=== PATIENT | female | born 1985 | race Caucasian/White ===

== ENCOUNTER 2018-03-21 11:20 | Emergency (ER) | payer SELFPAY ==
[~2018-03-21] VITALS: Ht 162.6 cm; Wt 97.5 kg
[2018-03-21 11:35] VITALS: BP 150/69
[2018-03-21] MEDS ORDERED: AMOX875T PO (11:57)
--- NOTE | 2018-03-21 11:58 | PHYS DOC ---
Adult General Chief Complaint Chief Complaint: EARACHE/EAR PAIN HPI HPI Patient is a 32 year old female who presents with mild bilateral ear pain that has been going on for 3 days. Patient denies any fever coughing or congestion. Patient states the pain is worse on the left side. She describes the pain as sharp and intermittent. Review of Systems Review of Systems Constitutional: Denies fever or chills [] Eyes: Denies change in visual acuity, redness, or eye pain [] HENT: Reports bilateral ear pain. Denies nasal congestion or sore throat [] Respiratory: Denies cough or shortness of breath [] Cardiovascular: No additional information not addressed in HPI [] GI: Denies abdominal pain, nausea, vomiting, bloody stools or diarrhea [] : Denies dysuria or hematuria [] Musculoskeletal: Denies back pain or joint pain [] Integument: Denies rash or skin lesions [] Neurologic: Denies headache, focal weakness or sensory changes [] All other systems were reviewed and found to be within normal limits, except as documented in this note. Allergies Allergies Allergies Coded Allergies Type Severity Reaction Last Updated Verified No Known Drug Allergies 03/21/18 No Physical Exam Physical Exam Constitutional: Well developed, well nourished, no acute distress, non-toxic appearance. [] HENT: Normocephalic, atraumatic, bilateral external ears normal, oropharynx moist, no oral exudates, nose normal. [] Right TM is mildly injected, left TM is moderately injected with small amount of cloudy fluid. No bulging. Eyes: PERRLA, EOMI, conjunctiva normal, no discharge. [] Neck: Normal range of motion, no tenderness, supple, no stridor. [] Cardiovascular:Heart rate regular rhythm, no murmur [] Lungs & Thorax: Bilateral breath sounds clear to auscultation [] Abdomen: Bowel sounds normal, soft, no tenderness, no masses, no pulsatile masses. [] Skin: Warm, dry, no erythema, no rash. [] Back: No tenderness, no CVA tenderness. [] Extremities: No tenderness, no cyanosis, no clubbing, ROM intact, no edema. [] Neurologic: Alert and oriented X 3, normal motor function, normal sensory function, no focal deficits noted. [] Psychologic: Affect normal, judgement normal, mood normal. [] EKG EKG [] Radiology/Procedures Radiology/Procedures [] Course & Med Decision Making Course & Med Decision Making Pertinent Labs and Imaging studies reviewed. (See chart for details) Patient has bilateral otitis media. Discharged with amoxicillin. Tylenol/Motrin for pain or fever. Follow-up with primary care doctor in 1-2 weeks. Dragon Disclaimer Dragon Disclaimer This electronic medical record was generated, in whole or in part, using a voice recognition dictation system. Departure Departure Impression: Primary Impression: Otitis media Disposition: 01 HOME, SELF-CARE Condition: STABLE Referrals: DEONTE DEJESUS MD follow up in 1-2 weeks Patient Instructions: Otitis Media, Adult Additional Instructions: You have ear infection. Ensure you complete your antibiotics. Take Tylenol/ Motrin for pain or fever. Follow-up with your doctor in 1-2 weeks as needed. Come back to the ED at any point symptoms worsen. Scripts Amoxicillin (AMOXICILLIN) 875 Mg Tablet 1 TAB PO BID, #20 TAB Prov: BART ACUÑA APRN 03/21/18 Problem Qualifiers Primary Impression: Otitis media Otitis media type: other nonsuppurative Chronicity: acute Laterality: bilateral Recurrence: not specified as recurrent Qualified Codes: H65.193 - Other acute nonsuppurative otitis media, bilateral BART ACUÑA MANAGER COMPLIANCE Mar 21, 2018 11:58
== END 2018-03-21 12:02 | disposition home or self-care (01) ==
LOC: ER 11:20
DX: H65.193 Other acute nonsuppurative otitis media, bilateral (principal)
CPT/HCPCS: 99283

== ENCOUNTER 2019-02-08 10:15 | Emergency (ER) | payer BC ==
[~2019-02-08] VITALS: Ht 162.6 cm; Wt 86.2 kg
[~2019-02-08 10:15] MED LIST: AMOX875T PO
[2019-02-08] MEDS ORDERED: IV NORMAL SALINE 1000ML BAG 1,000 ML IV SCH (10:33)
--- NOTE | 2019-02-08 10:39 | PHYS DOC ---
Past Medical History Past Medical History: Kidney Stone Additional Past Medical Histor: EXCEMA, PREG. INDUCED HYPERTENSION Past Surgical History: Smoking: Cigarettes Alcohol Use: Occasionally Drug Use: None Adult General Chief Complaint Chief Complaint: ABDOMINAL PAIN HPI HPI Patient is a 33-year-old female who presents to the emergency department for evaluation. The patient states that about 2 weeks ago she awakened with left flank pain, and since that time has had persistent dysuria, urinary frequency and hesitancy. She states that she has had kidney stones in the pat, numerous of which have passed on their own, and this feels somewhat similar. She has had some intermittent nausea and vomiting but has not had any fevers or chills. She denies any vaginal bleeding or discharge. There are no alleviating or exacerbating factors to her symptoms otherwise. Review of Systems Review of Systems Constitutional: Denies fever or chills [] Eyes: Denies change in visual acuity, redness, or eye pain [] HENT: Denies nasal congestion or sore throat [] Respiratory: Denies cough or shortness of breath [] Cardiovascular: The patient denies any shortness of breath, chest pain, palpitations, or orthopnea [] GI: Denies bloody emesis, bloody stools or diarrhea [] : Denies vaginal bleeding, discharge or hematuria [] Musculoskeletal: Denies back pain or joint pain [] Integument: Denies rash or skin lesions [] Neurologic: Denies headache, focal weakness or sensory changes [] Endocrine: Denies polyuria or polydipsia [] All other systems were reviewed and found to be within normal limits, except as documented in this note. Current Medications Current Medications Current Medications Medications (Trade) Dose Ordered Sig/Ly Start Time Stop Time Status Last Admin Dose Admin Ceftriaxone Sodium (Rocephin) 1 gm 1X ONCE 02/08/19 12:00 02/08/19 12:01 DC 02/08/19 12:02 1 GM Ketorolac Tromethamine (Toradol 30mg Vial) 30 mg 1X ONCE 02/08/19 10:45 02/08/19 10:46 DC 02/08/19 12:02 30 MG Ondansetron HCl (Zofran) 4 mg 1X ONCE 02/08/19 10:45 02/08/19 10:46 DC 02/08/19 12:02 4 MG Sodium Chloride 1,000 ml @ 1,000 mls/hr Q1H 02/08/19 10:33 02/08/19 11:32 DC 02/08/19 12:02 1,000 MLS/HR Allergies Allergies Allergies Coded Allergies Type Severity Reaction Last Updated Verified No Known Drug Allergies 03/21/18 No Physical Exam Physical Exam PHYSICAL EXAM: CONSTITUTIONAL: Well developed, well nourished HEAD: normocephalic, atraumatic EENT: PERRL, EOMI. Conjunctivae normal color, sclerae non-icteric; moist mucous membranes. NECK: Supple, non-tender; no meningismus. LUNGS: Lungs CTA, breathing even and unlabored. Normal air movement. HEART: Regular rate and rhythm, no murmur CHEST: No deformity; non-tender ABDOMEN: The abdomen is soft, there is diffuse tenderness to palpation to the abdomen, most prominently in the left abdomen, without rebound or guarding. The remainder the abdomen is soft and non-tender, no masses or bruits. EXTREM: Normal ROM; no deformity, no calf tenderness. Normal pulses palpable in all extremities. There is no pedal edema. SKIN: No rash; no diaphoresis NEURO: Alert; normal speech and cognition; CN's grossly intact; strength grossly intact without focal deficit. BACK: No CVA TTP. Current Patient Data Vital Signs Vital Signs Date Time Temp Pulse Resp B/P (MAP) Pulse Ox O2 Delivery O2 Flow Rate FiO2 02/08/19 10:45 98.4 80 14 129/75 (93) 98 Room Air 98.4 Lab Values Laboratory Tests Test 02/08/19 10:40 02/08/19 10:41 White Blood Count 7.4 x10^3/uL (4.0-11.0) Red Blood Count 4.61 x10^6/uL (3.50-5.40) Hemoglobin 13.8 g/dL (12.0-15.5) Hematocrit 40.4 % (36.0-47.0) Mean Corpuscular Volume 88 fL (79-100) Mean Corpuscular Hemoglobin 30 pg (25-35) Mean Corpuscular Hemoglobin Concent 34 g/dL (31-37) Red Cell Distribution Width 14.1 % (11.5-14.5) Platelet Count 236 x10^3/uL (140-400) Neutrophils (%) (Auto) 60 % (31-73) Lymphocytes (%) (Auto) 30 % (24-48) Monocytes (%) (Auto) 7 % (0-9) Eosinophils (%) (Auto) 3 % (0-3) Basophils (%) (Auto) 1 % (0-3) Neutrophils # (Auto) 4.5 x10^3/uL (1.8-7.7) Lymphocytes # (Auto) 2.2 x10^3/uL (1.0-4.8) Monocytes # (Auto) 0.5 x10^3/uL (0.0-1.1) Eosinophils # (Auto) 0.2 x10^3/uL (0.0-0.7) Basophils # (Auto) 0.1 x10^3/uL (0.0-0.2) Urine Collection Type Unknown Urine Color Yellow Urine Clarity Clear Urine pH 7.0 Urine Specific [place] 1.020 Urine Protein Negative mg/dL (NEG-TRACE) Urine Glucose (UA) Negative mg/dL (NEG) Urine Ketones (Stick) Negative mg/dL (NEG) Urine Blood Small (NEG) Urine Nitrite Positive (NEG) Urine Bilirubin Negative (NEG) Urine Urobilinogen Dipstick 1.0 mg/dL (0.2 mg/dL) Urine Leukocyte Esterase Moderate (NEG) Urine RBC Occ /HPF (0-2) Urine WBC 11-20 /HPF (0-4) Urine Bacteria Many /HPF (0-FEW) Sodium Level 141 mmol/L (136-145) Potassium Level 4.0 mmol/L (3.5-5.1) Chloride Level 105 mmol/L (98-107) Carbon Dioxide Level 25 mmol/L (21-32) Anion Gap 11 (6-14) Blood Urea Nitrogen 16 mg/dL (7-20) Creatinine 0.7 mg/dL (0.6-1.0) Estimated GFR (Cockcroft-Gault) 95.2 BUN/Creatinine Ratio 23 (6-20) H Glucose Level 89 mg/dL (70-99) Calcium Level 8.8 mg/dL (8.5-10.1) Total Bilirubin 0.6 mg/dL (0.2-1.0) Aspartate Amino Transferase (AST) 13 U/L (15-37) L Alanine Aminotransferase (ALT) 23 U/L (14-59) Alkaline Phosphatase 78 U/L (46-116) Total Protein 6.9 g/dL (6.4-8.2) Albumin 3.8 g/dL (3.4-5.0) Albumin/Globulin Ratio 1.2 (1.0-1.7) Lipase 103 U/L (73-393) Urine Test Negative (NEG) Laboratory Tests 02/08/19 10:40 Laboratory Tests 02/08/19 10:40 EKG EKG [] Radiology/Procedures Radiology/Procedures [PROCEDURE: CT ABDOMEN PELVIS WO CONTRAST CT scan of the abdomen and pelvis without contrast 02/20/2019 CLINICAL HISTORY: Left flank pain. TECHNIQUE: Unenhanced, contiguous, 2 mm axial sections were obtained through the abdomen and pelvis. One or more of the following individualized dose reduction techniques were utilized for this study: 1. Automated exposure control. 2. Adjustment of the mA and/or kV according to patient size. 3. Use of iterative reconstruction technique. FINDINGS: Images through the lung bases demonstrate minimal dependent subsegmental atelectasis bilaterally. The liver, spleen, pancreas, and adrenal glands are within normal limits. Nonobstructing calculi are seen involving both kidneys. These measure 2 mm to 3 mm in size. A 1 cm rounded low-attenuation lesion is seen involving the lower pole of the right kidney which likely represents a cyst. No ureteral calculus is seen. There is no evidence of obstruction of either collecting system. The abdominal aorta tapers normally. The gallbladder is well-distended. No free fluid or free air is seen within the abdomen. Air and stool are seen throughout the colon. The appendix is well-visualized and is within normal limits. There is no evidence of bowel obstruction. Images through the pelvis demonstrate the urinary bladder be contracted. Calcifications are seen within the pelvis consistent with phleboliths. A 2.8 cm oval-shaped low-attenuation lesion is seen involving the right adnexa which may represent a right ovarian cyst. No free fluid is seen. Very mild S-shaped curvature of the thoracolumbar spine is seen. Degenerative changes are seen involving the lower thoracic and mid and lower lumbar spine. IMPRESSION: 1. Bilateral nonobstructing renal calculi. No ureteral calculus is seen. There is no evidence of obstruction of either collecting system. 2. Question 2.8 cm right ovarian cyst.] Course & Med Decision Making Course & Med Decision Making Pertinent Labs and Imaging studies reviewed. (See chart for details) []1 O'clock p.m.:Patient remains stable. I discussed test results, the need for close follow-up, and return precautions. Dragon Disclaimer Dragon Disclaimer This electronic medical record was generated, in whole or in part, using a voice recognition dictation system. Departure Departure Impression: Primary Impression: UTI (urinary tract infection) Disposition: HOME, SELF-CARE Admitting Physician: NICOLA Condition: STABLE Patient Instructions: Urinary Tract Infection Additional Instructions: Follow-up with the primary care provider of your choice, using the provided resources to help establish a primary care provider. Return to medical care for any new or worsening symptoms, development of increasing pain, recurrent vomiting, lethargy, or any other new or concerning symptoms. Scripts Sulfamethoxazole/Trimethoprim (BACTRIM DS TABLET) 1 Each Tablet 1 TAB PO BID, #14 TAB Prov: HARVINDER LOCK MD 02/08/19 HARVINDER LOCK MD Feb 08, 2019 10:38
[2019-02-08] MEDS ORDERED: ONDANSETRON PF 4 MG/2 ML VIAL. IV ONE (10:45)
[2019-02-08] MEDS ORDERED: KETOROLAC 30 MG/ML VIAL. IV ONE (10:45)
[2019-02-08 10:49] LABS: BASO # 0.1 x10^3/uL (0.0-0.2); BASO % 1 % (0-3); EOS # 0.2 x10^3/uL (0.0-0.7); EOS % 3 % (0-3); HEMATOCRIT 40.4 % (36.0-47.0); HEMOGLOBIN 13.8 g/dL (12.0-15.5); LYMPH # 2.2 x10^3/uL (1.0-4.8); LYMPH % 30 % (24-48); MEAN CORPUSCULAR HEMOGLOBIN 30 pg (25-35); MEAN CORPUSCULAR HGB CONC 34 g/dL (31-37); MEAN CORPUSCULAR VOLUME 88 fL (79-100); MONO # 0.5 x10^3/uL (0.0-1.1); MONO % 7 % (0-9); NEUT # 4.5 x10^3/uL (1.8-7.7); NEUT % 60 % (31-73); PLATELET COUNT 236 x10^3/uL (140-400); RED BLOOD COUNT 4.61 x10^6/uL (3.50-5.40); RED CELL DISTRIBUTION WIDTH 14.1 % (11.5-14.5); WHITE BLOOD COUNT 7.4 x10^3/uL (4.0-11.0)
[2019-02-08 10:50] LABS: BILIRUBIN,URINE NEGATIVE (NEG); CLARITY,URINE CLEAR; COLOR,URINE YELLOW; NITRITE,URINE POSITIVE (NEG); PROTEIN,URINE NEGATIVE (NEG-TRACE)
[2019-02-08 10:56] LABS: CALCIUM 8.8 mg/dL (8.5-10.1); CREATININE 0.7 mg/dL (0.6-1.0); GFR 95.2
[2019-02-08 11:01] LABS: ALBUMIN 3.8 g/dL (3.4-5.0); ALBUMIN/GLOBULIN RATIO 1.2 (1.0-1.7); TOTAL BILIRUBIN 0.6 mg/dL (0.2-1.0); TOTAL PROTEIN 6.9 g/dL (6.4-8.2)
[2019-02-08 11:20] LABS: BACTERIA,URINE MANY /HPF (0-FEW); RBC,URINE OCC /HPF (0-2)
[2019-02-08] MEDS ORDERED: cefTRIAXone IV Push 1 GM VIAL. IVP ONE (12:00)
[2019-02-08 12:06] LABS: U PREG PATIENT NEGATIVE (NEG)
[2019-02-08 12:45] VITALS: BP 121/71
--- NOTE | 2019-02-08 12:53 | RAD ---
CT scan of the abdomen and pelvis without contrast 02/20/2019 CLINICAL HISTORY: Left flank pain. TECHNIQUE: Unenhanced, contiguous, 2 mm axial sections were obtained through the abdomen and pelvis. One or more of the following individualized dose reduction techniques were utilized for this study: 1. Automated exposure control. 2. Adjustment of the mA and/or kV according to patient size. 3. Use of iterative reconstruction technique. FINDINGS: Images through the lung bases demonstrate minimal dependent subsegmental atelectasis bilaterally. The liver, spleen, pancreas, and adrenal glands are within normal limits. Nonobstructing calculi are seen involving both kidneys. These measure 2 mm to 3 mm in size. A 1 cm rounded low-attenuation lesion is seen involving the lower pole of the right kidney which likely represents a cyst. No ureteral calculus is seen. There is no evidence of obstruction of either collecting system. The abdominal aorta tapers normally. The gallbladder is well-distended. No free fluid or free air is seen within the abdomen. Air and stool are seen throughout the colon. The appendix is well-visualized and is within normal limits. There is no evidence of bowel obstruction. Images through the pelvis demonstrate the urinary bladder be contracted. Calcifications are seen within the pelvis consistent with phleboliths. A 2.8 cm oval-shaped low-attenuation lesion is seen involving the right adnexa which may represent a right ovarian cyst. No free fluid is seen. Very mild S-shaped curvature of the thoracolumbar spine is seen. Degenerative changes are seen involving the lower thoracic and mid and lower lumbar spine. IMPRESSION: 1. Bilateral nonobstructing renal calculi. No ureteral calculus is seen. There is no evidence of obstruction of either collecting system. 2. Question 2.8 cm right ovarian cyst. Electronically signed by: Cachorro Lovelace MD (02/08/2019 12:50 PM) [facility]
[2019-02-08] MEDS ORDERED: SULF1TAB24 PO (13:03)
== END 2019-02-08 13:18 | disposition home or self-care (01) ==
LOC: ER 10:15
DX: N39.0 Urinary tract infection, site not specified (principal); Z87.442 Personal history of urinary calculi; F17.210 Nicotine dependence, cigarettes, uncomplicated; Z98.890 Other specified postprocedural states
CPT/HCPCS: 36415; 74176; 80053; 81001; 81025; 83690; 85025; 87086; 87186; 96361; 96374; 96375; 99285; J0696; J1885; J2405; J7030

== ENCOUNTER 2019-07-11 13:49 | Emergency (ER) | payer BC ==
[~2019-07-11] VITALS: Ht 162.6 cm; Wt 99.0 kg
[~2019-07-11 13:49] MED LIST changes: +SULF1TAB24 PO
[2019-07-11 13:58] VITALS: BP 121/58
[2019-07-11] MEDS ORDERED: ONDA4TAB12 PO (14:52)
--- NOTE | 2019-07-11 14:52 | PHYS DOC ---
Past Medical History Past Medical History: Kidney Stone Additional Past Medical Histor: EXCEMA, PREG. INDUCED HYPERTENSION Past Surgical History: Smoking Status: Current Every Day Smoker Alcohol Use: Occasionally Drug Use: None Adult General Chief Complaint Chief Complaint: NAUSEA/VOMITING/[facility] HPI Patient is a 33 year old female who presents with nausea, vomiting, and diarrhea, accompanied by fatigue and loss of appetite. Her and daughter have been sick with similar symptoms. Her symptoms started last night. Denies any additional symptoms. Complete ROS were reviewed and found to be within normal limits, except as documented in the HPI Allergies Allergies Allergies Coded Allergies Type Severity Reaction Last Updated Verified No Known Drug Allergies 03/21/18 No Physical Exam Physical Exam Constitutional: Well developed, well nourished, no acute distress, non-toxic appearance. [] HENT: Normocephalic, atraumatic, bilateral external ears normal, oropharynx moist, no oral exudates, nose normal. [] Eyes: PERRLA, EOMI, conjunctiva normal, no discharge. [] Neck: Normal range of motion, no tenderness, supple, no stridor. [] Cardiovascular:Heart rate regular rhythm, no murmur [] Lungs & Thorax: Bilateral breath sounds clear to auscultation [] Abdomen: Bowel sounds normal, soft, no tenderness, no masses, no pulsatile masses. [] Skin: Warm, dry, no erythema, no rash. [] Neurologic: Alert and oriented X 3, normal motor function, normal sensory function, no focal deficits noted. [] Psychologic: Affect normal, judgement normal, mood normal. [] Current Patient Data Vital Signs Vital Signs Date Time Temp Pulse Resp B/P (MAP) Pulse Ox O2 Delivery O2 Flow Rate FiO2 07/11/19 13:58 98.5 74 16 121/58 (79) 94 Room Air 98.5 EKG EKG [] Radiology/Procedures Radiology/Procedures [] Course & Med Decision Making Course & Med Decision Making Pertinent Labs and Imaging studies reviewed. (See chart for details) Patient appears to have gastroenteritis. Will prescribe Zofran. Discussed with patient that she should drink plenty of water and get plenty of rest. She should use Ibuprofen and Tylenol for fever control. Dragon Disclaimer Dragon Disclaimer This electronic medical record was generated, in whole or in part, using a voice recognition dictation system. Departure Departure Impression: Primary Impression: Gastroenteritis Disposition: 01 HOME, SELF-CARE Condition: STABLE Referrals: NO PCP (PCP) Patient Instructions: Viral Gastroenteritis Additional Instructions: Thank you for visiting [facility]. We appreciate you trusting us with your care. If any additional problems come up don't hesitate to return to visit us. Please follow up with your primary care provider so they can plan additional care if needed and know about the problem that you had. If symptoms worsen come back to the Emergency Department. Any concerning symptoms that start such as chest pain, shortness of air, weakness or numbness on one side of the body, running high fevers or any other concerning symptoms return to the ER. Please fill your medications at any pharmacy and follow the prescription instructions. Please drink plenty of fluids. If unable to keep fluids down please return to ER. Please get Tylenol and Ibuprofen over the counter. Give each medication every 6 hours as directed by the medication labels. In order to utilize the peak of the medications stagger the medications to where the child is getting one of the medications every 3 hours. For example if you give Ibuprofen at 3 PM, you then give Tylenol at 6 PM and Ibuprofen again at 9 PM, and then Tylenol at midnight. Please get Zyrtec over the counter and take per label instructions for runny nose. Scripts Ondansetron (ONDANSETRON ODT) 4 Mg Tab.rapdis 1 TAB PO PRN Q6-8HRS PRN for NAUSEA, #20 TAB Prov: RY TURCIOS APRN 07/11/19 RY TURCIOS APRN Jul 11, 2019 14:52
== END 2019-07-11 15:00 | disposition home or self-care (01) ==
LOC: ER 13:49
DX: K52.9 Noninfective gastroenteritis and colitis, unspecified (principal); R11.2 Nausea with vomiting, unspecified; R63.0 Anorexia; F17.200 Nicotine dependence, unspecified, uncomplicated; Z87.442 Personal history of urinary calculi; Z98.890 Other specified postprocedural states
CPT/HCPCS: 99283

== ENCOUNTER 2019-11-19 18:24 | Emergency (ER) | payer BC ==
[~2019-11-19] VITALS: Ht 162.6 cm; Wt 105.0 kg
[~2019-11-19 18:24] MED LIST changes: +ONDA4TAB12 PO
[2019-11-19] MEDS ORDERED: diphenhydrAMINE 50 MG/ML VIAL IVP ONE (18:45)
[2019-11-19] MEDS ORDERED: IV NORMAL SALINE 1000ML BAG 1,000 ML IV ONE (18:45)
[2019-11-19] MEDS ORDERED: methylPREDNISolone SOD SUCC PF 125 MG/2 ML VIAL. IV ONE (18:45)
[2019-11-19] MEDS ORDERED: METOCLOPRAMIDE HCL 10 MG/2 ML VIAL. IVP ONE (18:45)
--- NOTE | 2019-11-19 19:47 | RAD ---
EXAM: Head CT without contrast. HISTORY: Headache. TECHNIQUE: Computed tomographic images of the head were obtained without contrast. *One or more of the following individualized dose reduction techniques were utilized for this examination: 1. Automated exposure control. 2. Adjustment of the mA and/or kV according to patient size. 3. Use of iterative reconstruction technique. COMPARISON: None. FINDINGS: There is no acute or subacute extra-axial or intraparenchymal hemorrhage. There is no mass effect or midline shift. There is no hydrocephalus. The krueger-white matter differential pattern is intact. The visualized portions of the orbits, paranasal sinuses and mastoid air cells are unremarkable. No suspicious calvarial lesion is seen. IMPRESSION: No acute intracranial findings. Electronically signed by: Missy Woodward MD (11/19/2019 7:44 PM) [facility]
--- NOTE | 2019-11-19 19:50 | PHYS DOC ---
Past Medical History Past Medical History: Kidney Stone, Migraines Additional Past Medical Histor: EXCEMA, PREG. INDUCED HYPERTENSION Past Surgical History: Smoking Status: Current Every Day Smoker Alcohol Use: Occasionally Drug Use: None General Adult EDM: Chief Complaint: HEADACHE HPI: HPI: Patient is a 33 year old female who presents for evaluation of a moderate right-sided headache. She states it feels like a "pressure in her head". Onset of symptoms since this morning. She has a history of migraines but this was unusually more severe and different. She states she took off brand Imitrex without relief. She has light sensitivity as well as nausea and vomiting. Patient has not had a recent headache work-up including CAT scan in many years. Dr. Larios is her doctor. There is no reported neck pain or fever and chills Review of Systems: Review of Systems: Constitutional: Denies fever or chills. [] Eyes: Denies change in visual acuity. [] HENT: Denies nasal congestion or sore throat. [] Respiratory: Denies cough or shortness of breath. [] Cardiovascular: Denies chest pain or edema. [] GI: Denies abdominal pain, has nausea and vomiting, no bloody stools or diarrhea. [] : Denies dysuria. [] Musculoskeletal: Denies back pain or joint pain. [] Integument: Denies rash. [] Neurologic: has headache, no focal weakness or sensory changes. [] Endocrine: Denies polyuria or polydipsia. [] Lymphatic: Denies swollen glands. [] Psychiatric: Denies depression or anxiety. [] Heart Score: Risk Factors: Risk Factors: DM, Current or recent (<one month) smoker, HTN, HLP, family history of CAD, obesity. Risk Scores: Score 0 - 3: 2.5% MACE over next 6 weeks - Discharge Home Score 4 - 6: 20.3% MACE over next 6 weeks - Admit for Clinical Observation Score 7 - 10: 72.7% MACE over next 6 weeks - Early Invasive Strategies Current Medications: Current Medications Medications (Trade) Dose Ordered Sig/Ly Start Time Stop Time Status Last Admin Dose Admin Diphenhydramine HCl (Benadryl) 25 mg 1X ONCE 11/19/19 18:45 11/19/19 18:48 DC 11/19/19 19:05 25 MG Methylprednisolone Sodium Succinate (SOLU-Medrol 125MG VIAL) 125 mg 1X ONCE 11/19/19 18:45 11/19/19 18:48 DC 11/19/19 19:04 125 MG Metoclopramide HCl (Reglan Vial) 10 mg 1X ONCE 11/19/19 18:45 11/19/19 18:48 DC 11/19/19 19:04 10 MG Sodium Chloride 1,000 ml @ 999 mls/hr 1X ONCE 11/19/19 18:45 11/19/19 19:45 DC 11/19/19 19:04 999 MLS/HR Allergies: Allergies: Allergies Coded Allergies Type Severity Reaction Last Updated Verified No Known Drug Allergies 03/21/18 No Physical Exam: PE: Constitutional: Well developed, well nourished, modeate distress, non-toxic appearance. [] HENT: Normocephalic, atraumatic, bilateral external ears normal, oropharynx moist, no oral exudates, nose normal. [] Eyes: PERRL, EOMI, conjunctiva normal, no discharge. [] Neck: Normal range of motion, no tenderness, supple, no stridor. [] Cardiovascular:Heart rate regular rhythm, no murmur [] Lungs & Thorax: Bilateral breath sounds clear to auscultation [] Abdomen: Bowel sounds normal, soft, no tenderness. [] Skin: Warm, dry, no erythema, no rash. [] Back: No tenderness. [] Extremities: No tenderness, no cyanosis, no clubbing, ROM intact, no edema. [] Neurologic: Alert and oriented X 3, normal motor function, normal sensory function, no focal deficits noted. [] Psychologic: Affect normal, judgement normal, anxious mood. [] Current Patient Data: Labs: Laboratory Tests Test 11/19/19 18:39 11/19/19 20:20 Bedside Urine HCG, Qualitative Hcg negative White Blood Count 9.6 x10^3/uL Red Blood Count 4.49 x10^6/uL Hemoglobin 13.6 g/dL Hematocrit 39.2 % Mean Corpuscular Volume 87 fL Mean Corpuscular Hemoglobin 30 pg Mean Corpuscular Hemoglobin Concent 35 g/dL Red Cell Distribution Width 13.6 % Platelet Count 243 x10^3/uL Neutrophils (%) (Auto) 82 % Lymphocytes (%) (Auto) 14 % Monocytes (%) (Auto) 3 % Eosinophils (%) (Auto) 1 % Basophils (%) (Auto) 0 % Neutrophils # (Auto) 7.9 x10^3/uL Lymphocytes # (Auto) 1.4 x10^3/uL Monocytes # (Auto) 0.3 x10^3/uL Eosinophils # (Auto) 0.1 x10^3/uL Basophils # (Auto) 0.0 x10^3/uL Sodium Level 141 mmol/L Potassium Level 3.8 mmol/L Chloride Level 107 mmol/L Carbon Dioxide Level 26 mmol/L Anion Gap 8 Blood Urea Nitrogen 14 mg/dL Creatinine 0.9 mg/dL Estimated GFR (Cockcroft-Gault) 71.3 BUN/Creatinine Ratio 16 Glucose Level 99 mg/dL Calcium Level 8.4 mg/dL Total Bilirubin 0.5 mg/dL Aspartate Amino Transf (AST/SGOT) 16 U/L Alanine Aminotransferase (ALT/SGPT) 41 U/L Alkaline Phosphatase 79 U/L Total Protein 6.8 g/dL Albumin 3.4 g/dL Albumin/Globulin Ratio 1.0 Current Medications Medications (Trade) Dose Ordered Sig/Ly Route PRN Reason Start Time Stop Time Status Last Admin Dose Admin Sodium Chloride 1,000 ml @ 999 mls/hr 1X ONCE IV 11/19/19 18:45 11/19/19 19:45 DC 11/19/19 19:04 Metoclopramide HCl (Reglan Vial) 10 mg 1X ONCE IVP 11/19/19 18:45 11/19/19 18:48 DC 11/19/19 19:04 Diphenhydramine HCl (Benadryl) 25 mg 1X ONCE IVP 11/19/19 18:45 11/19/19 18:48 DC 11/19/19 19:05 Methylprednisolone Sodium Succinate (SOLU-Medrol 125MG VIAL) 125 mg 1X ONCE IV 11/19/19 18:45 11/19/19 18:48 DC 11/19/19 19:04 Ketorolac Tromethamine (Toradol 15mg Vial) 15 mg 1X ONCE IVP 11/19/19 20:30 11/19/19 20:38 DC 11/19/19 20:35 Vital Signs: Vital Signs Date Time Temp Pulse Resp B/P (MAP) Pulse Ox O2 Delivery O2 Flow Rate FiO2 11/19/19 18:30 98.0 74 11 126/83 (97) 100 Room Air 98.0 EKG: EKG: [] Radiology/Procedures: Radiology/Procedures: [facility] [address] [place] [address] IMAGING REPORT Signed PATIENT: LESLY RENEE ACCOUNT: [id number] : 1985 LOCATION: ER AGE: 33 SEX: F EXAM STATUS: REG ER ORD. PHYSICIAN: GUILLERMO HOWARD DO REASON: headache PROCEDURE: CT HEAD WO CONTRAST EXAM: Head CT without contrast. HISTORY: Headache. TECHNIQUE: Computed tomographic images of the head were obtained without contrast. *One or more of the following individualized dose reduction techniques were utilized for this examination: 1. Automated exposure control. 2. Adjustment of the mA and/or kV according to patient size. 3. Use of iterative reconstruction technique. COMPARISON: None. FINDINGS: There is no acute or subacute extra-axial or intraparenchymal hemorrhage. There is no mass effect or midline shift. There is no hydrocephalus. The krueger-white matter differential pattern is intact. The visualized portions of the orbits, paranasal sinuses and mastoid air cells are unremarkable. No suspicious calvarial lesion is seen. IMPRESSION: No acute intracranial findings. Electronically signed by: Missy Mcfarland MD (11/19/2019 7:44 PM) [facility] DICTATED and SIGNED BY: MISSY MCFARLAND MD DATE: 11/19/191943 [] Course & Med Decision Making: Course & Med Decision Making Pertinent Labs and Imaging studies reviewed. (See chart for details) [] Dragon Disclaimer: Dragon Disclaimer: This electronic medical record was generated, in whole or in part, using a voice recognition dictation system. 2054 stable, reassessed at this time. ED work-up unremarkable. Lab work stable and CT scan head negative. Patient will be given prescription for Reglan which did seem to help her head pain. She will call and see your doctor right away and follow, patient has a steady gait with no focal deficits or lateralizing signs. Patient states she has a ride home and will not be driving Departure Departure Impression: Primary Impression: Acute headache Qualified Codes: R51 - Headache Additional Impression: Nausea and vomiting Qualified Codes: R11.2 - Nausea with vomiting, unspecified Disposition: 01 HOME, SELF-CARE Condition: STABLE Referrals: MARJAN QUILES MD (PCP) Patient Instructions: Migraine Headache, Nausea and Vomiting Additional Instructions: drink plenty of fluids, rest, medication as directed, call and see your doctor right away in follow up Scripts Metoclopramide Hcl (REGLAN) 10 Mg Tablet 1 TAB PO TID for nausea for 10 Days, #20 TAB 0 Refills before food and bedtime Prov: GUILLERMO HOWARD DO 11/19/19 Justicifation of Admission Dx: Justifications for Admission: Justification of Admission Dx: N/A GUILLERMO HOWARD DO Nov 19, 2019 19:50
[2019-11-19] MEDS ORDERED: KETOROLAC 15 MG/ML VIAL. IVP ONE (20:30)
[2019-11-19 20:33] LABS: BASO % 0 % (0-3); EOS # 0.1 x10^3/uL (0.0-0.7); EOS % 1 % (0-3); HEMATOCRIT 39.2 % (36.0-47.0); HEMOGLOBIN 13.6 g/dL (12.0-15.5); LYMPH # 1.4 x10^3/uL (1.0-4.8); LYMPH % 14 % (24-48); MEAN CORPUSCULAR HEMOGLOBIN 30 pg (25-35); MEAN CORPUSCULAR HGB CONC 35 g/dL (31-37); MEAN CORPUSCULAR VOLUME 87 fL (79-100); MONO # 0.3 x10^3/uL (0.0-1.1); MONO % 3 % (0-9); NEUT # 7.9 x10^3/uL (1.8-7.7); NEUT % 82 % (31-73); PLATELET COUNT 243 x10^3/uL (140-400); RED BLOOD COUNT 4.49 x10^6/uL (3.50-5.40); RED CELL DISTRIBUTION WIDTH 13.6 % (11.5-14.5); WHITE BLOOD COUNT 9.6 x10^3/uL (4.0-11.0)
[2019-11-19 20:38] LABS: CALCIUM 8.4 mg/dL (8.5-10.1); CREATININE 0.9 mg/dL (0.6-1.0); GFR 71.3; POTASSIUM 3.8 mmol/L (3.5-5.1)
[2019-11-19 20:44] LABS: ALBUMIN 3.4 g/dL (3.4-5.0); TOTAL BILIRUBIN 0.5 mg/dL (0.2-1.0); TOTAL PROTEIN 6.8 g/dL (6.4-8.2)
[2019-11-19] MEDS ORDERED: METO10TA81 PO (20:59)
[2019-11-19 21:00] VITALS: BP 121/67
== END 2019-11-19 21:05 | disposition home or self-care (01) ==
LOC: ER 18:24
DX: G43.909 Migraine, unspecified, not intractable, without status migrainosus (principal); R42 Dizziness and giddiness; R11.2 Nausea with vomiting, unspecified; F17.200 Nicotine dependence, unspecified, uncomplicated; Z87.442 Personal history of urinary calculi; Z98.890 Other specified postprocedural states
CPT/HCPCS: 36415; 70450; 80053; 81025; 85025; 96361; 96374; 96375; 99284; J1200; J1885; J2765; J2930; J7030